=== PATIENT | female | born 1990 | race Caucasian/White ===

== ENCOUNTER 2021-10-13 18:36 | Inpatient (IN) | payer SELFPAY ==
[~2021-10-13] VITALS: Ht 170.2 cm; Wt 117.9 kg
[2021-10-13 19:19] VITALS: BP_SYST 140
--- NOTE | 2021-10-13 19:40 | NUR ---
DR. HESS TO ASSESS PATIENT IN TRIAGE
[2021-10-13 20:14] LABS: BASOPHILS % (AUTO) 0.2 % (0.0-2.0); EOSINOPHILS % (AUTO) 0.2 % (0.0-4.0); HEMATOCRIT 39.9 % (36-48); HEMOGLOBIN 13.4 g/dL (12.0-16.0); LYMPHOCYTES # (AUTO) 1.3 K/uL (1.0-5.5); LYMPHOCYTES % (AUTO) 8.7 % (20.5-51.5); MEAN CORPUSCULAR HEMOGLOBIN 30 pg (27-31); MEAN CORPUSCULAR HGB CONC 34 % (32-36); MEAN CORPUSCULAR VOLUME 88 fL (79.0-98.0); MONOCYTES # (AUTO) 0.8 K/uL (0.0-1.0); MONOCYTES % (AUTO) 5.5 % (1.7-9.3); NEUTROPHILS # (AUTO) 12.2 K/uL (1.8-7.7); NEUTROPHILS % (AUTO) 85.4 % (40.0-70.0); PLATELET COUNT (AUTO) 382 K/uL (130-430); RED BLOOD CELL COUNT(AUTO) 4.51 MIL/uL (4.2-6.2); RED CELL DISTRIBUTION WIDTH 14.1 % (9.0-15.0); WHITE BLOOD COUNT (AUTO) 14.4 K/uL (4.8-10.8)
[2021-10-13 20:29] LABS: CALCIUM 8.9 mg/dL (8.4-11.0); CREATININE 0.98 mg/dL (0.55-1.30); POTASSIUM 3.7 mmol/L (3.5-5.1)
[2021-10-13 20:35] LABS: ALBUMIN 4.2 g/dL (3.4-4.8); TOTAL BILIRUBIN 0.4 mg/dL (0.0-1.0)
--- NOTE | 2021-10-13 21:14 | NUR ---
COVID-19 BRI SWAB OBTAINED AND SENT TO THE LAB.
[2021-10-13 21:53] LABS: LACTATE DEHYDROGENASE 224 U/L (81-234)
--- NOTE | 2021-10-13 21:54 | NUR ---
Patient to ER bed 07 to gown for evaluation. Side rails up. Report given to KAPIL PAYNE
--- NOTE | 2021-10-13 22:00 | NUR ---
Pt brought self in from home due to episode of bilateral upper extremity numbness. Onset was around 1600 and continued until around 2100. Pt reports she had N&V 2 weeks prior, but no other symptoms. Denies N&V at this time. Arrived to ED in stable condition. Breathing adequately on RA. Denies any PMH.
--- NOTE | 2021-10-13 23:09 | NUR ---
Admit bed requested Patient will be admitted to care of . Admitted to MED SURG unit. Diagnosis TIA Inpatient (Yes or No) YES Orientation concerns or request close to nursing station (Yes or No) NO Covid Status - From Home (Yes or if No enter name of facility) YES
[2021-10-13] MEDS ORDERED: NACL 0.9% 1,000 ML IV SCH (23:15)
[2021-10-14] MEDS ORDERED: FAMOTIDINE 20 MG TABLET PO ONE (02:15)
--- NOTE | 2021-10-14 03:23 | NUR ---
Patient will be admitted to care of MD Kline. Admitted to Med Surg unit. Will go to room . Belongings list completed. Complete and up to date summary report printed. SBAR report given KAPIL [place] bedside with opportunity for questions.
[2021-10-14 03:25] VITALS: BP_SYST 120
--- NOTE | 2021-10-14 04:16 | NUR ---
THIS IS AN ADMISSION NOTE FOR A 31 YEAR OLD FEMALE UNDER THE CARE OF DOCTOR MONATNO FOR TRANSIENT ISCHEMIC ATTACK. TAURUS BARRIOS RN
[2021-10-14 06:49] VITALS: BP_SYST 116
--- NOTE | 2021-10-14 06:55 | NUR ---
PATIENT SAYS SHE WOULD LIKE TO DISCHARGE TO HOME WHEN HER DAD COMES TO VISIT TODAY. NOTIFIED MAY HAVE TO AWAIT NEUROLOGY APPROVAL FOR DISCHARGE. PATIENT MAINTAINS SHE WANTS TO DISCHARGE SOONER THAN 5PM. TAURUS BARRIOS RN
--- NOTE | 2021-10-14 07:19 | NUR ---
OPENING NOTE: REPORT RCVD FROM OUTGOING NOC RN, ALL CARES ASSUMED. (KAPIL WAGNER)
--- NOTE | 2021-10-14 07:35 | NUR ---
DR. BELLE MAKING ROUNDS, BEDSIDE REPORT GIVEN, NO NEW ORDERS AT THIS TIME.
[2021-10-14] MEDS ORDERED: ONDANSETRON 4 MG ODT TAB PO PRN (07:45)
--- NOTE | 2021-10-14 07:51 | NUR ---
CONSULT: JESSIE BELLE IS AWARE OF CONSULT, HAS ALREADY SEEN THE PATIENT
[2021-10-14 08:00] VITALS: BP_SYST 124
--- NOTE | 2021-10-14 08:15 | NUR ---
DUSTY OCAMPO AT BEDSIDE , VERBAL REPORT GIVEN.
--- NOTE | 2021-10-14 08:20 | NUR ---
UA COLLECTED AND BROUGHT TO LAB
[2021-10-14 08:21] VITALS: BP_SYST 122
[2021-10-14] MEDS ORDERED: ONDA-8 TL (08:22)
[2021-10-14 09:15] LABS: HCG,QUAL RESULT NEGATIVE (NEGATIVE)
== END 2021-10-14 08:40 | disposition home or self-care (01) | DRG 74 ==
LOC: SED 18:36 → SMU 23:06
PROVIDERS: ADMIT General Practice; ATTEND General Practice
DX: G90.8 Other disorders of autonomic nervous system (principal); Z68.41 Body mass index [BMI] 40.0-44.9, adult; E66.9 Obesity, unspecified; E86.0 Dehydration; Z20.822 Contact with and (suspected) exposure to COVID-19
CPT/HCPCS: 36415; 70450-TC; 72125-TC; 76376; 80053; 82550; 83615; 83735; 84703; 85025; 85651-TC; 99285; Q0162

== ENCOUNTER 2021-11-07 18:24 | Emergency (ER) | payer BC ==
[~2021-11-07] VITALS: Ht 170.2 cm; Wt 116.1 kg
[~2021-11-07 18:24] MED LIST: ONDA-8 TL
[2021-11-07 18:49] VITALS: BP_SYST 150
[2021-11-07 21:56] LABS: BLOOD, URINE 3+ (NEGATIVE); GLUCOSE,URINE NEGATIVE (NEGATIVE); KETONES,URINE 1+ (NEGATIVE); LEUKOCYTE ESTERASE ,URINE TRACE (NEGATIVE); NITRITE, URINE NEGATIVE (NEGATIVE); PH,URINE 5.5 (5.0-8.0); PROTEIN URINE 2+ (NEGATIVE)
[2021-11-07 21:56] LABS: BASOPHILS % (AUTO) 0.4 % (0.0-2.0); EOSINOPHILS % (AUTO) 0.2 % (0.0-4.0); HEMATOCRIT 40.3 % (36-48); HEMOGLOBIN 13.9 g/dL (12.0-16.0); LYMPHOCYTES # (AUTO) 1.3 K/uL (1.0-5.5); LYMPHOCYTES % (AUTO) 12.8 % (20.5-51.5); MEAN CORPUSCULAR HEMOGLOBIN 31 pg (27-31); MEAN CORPUSCULAR HGB CONC 35 % (32-36); MEAN CORPUSCULAR VOLUME 89 fL (79.0-98.0); MONOCYTES # (AUTO) 0.5 K/uL (0.0-1.0); MONOCYTES % (AUTO) 5.2 % (1.7-9.3); NEUTROPHILS # (AUTO) 8.5 K/uL (1.8-7.7); NEUTROPHILS % (AUTO) 81.4 % (40.0-70.0); PLATELET COUNT (AUTO) 358 K/uL (130-430); RED BLOOD CELL COUNT(AUTO) 4.51 MIL/uL (4.2-6.2); RED CELL DISTRIBUTION WIDTH 14.9 % (9.0-15.0); WHITE BLOOD COUNT (AUTO) 10.4 K/uL (4.8-10.8)
[2021-11-07 21:58] LABS: CALCIUM 8.9 mg/dL (8.4-11.0); CREATININE 1.07 mg/dL (0.55-1.30); POTASSIUM 4.1 mmol/L (3.5-5.1)
[2021-11-07 22:02] LABS: BILIRUBIN,URINE 2+ (NEGATIVE); CLARITY/URINE HAZY (CLEAR); COLOR,URINE AMBER (YELLOW)
[2021-11-07 22:03] LABS: TOTAL BILIRUBIN 0.4 mg/dL (0.0-1.0)
[2021-11-07 22:06] LABS: BACTERIA,URINE FEW /HPF (None Seen); MUCUS,URINE None Seen /LPF (None Seen); RBC,URINE 20-50 /HPF (0-3)
--- NOTE | 2021-11-08 00:05 | NUR ---
Patient to ER bed 05 to gown for evaluation. Side rails up. Report given to KAPIL WHEELER
[2021-11-08] MEDS ORDERED: ONDANSETRON HCL 4 MG/2 ML VIAL IVP ONE (01:00)
[2021-11-08] MEDS ORDERED: NACL 0.9% 1,000 ML IV ONE (01:00)
[2021-11-08] MEDS ORDERED: DIPHENHYDRAMINE INJ 50 MG/ML VIAL IVP ONE (03:00)
[2021-11-08] MEDS ORDERED: METOCLOPRAMIDE HCL 10 MG/2 ML VIAL IVP ONE (03:00)
[2021-11-08] MEDS ORDERED: ONDA-8 TL (04:06)
--- NOTE | 2021-11-08 04:20 | NUR ---
DC INSTRUCTIONS GIVEN TO PT WITH FULL RETURNED VERBAL UNDERSTANDING. NO S/S OF DISTRESS NOTED. PT WAS ABLE TO KEEP LIQUIDS DOWN PRIOR TO DISCHARGE. VSS PT AMBULATES TO EXIT WITH STEADY GAIT. IV DC'D, CATHETER INTACT. SMALL PRESSURE DRESSING APPLIED.
[2021-11-08 04:30] VITALS: BP_SYST 124
== END 2021-11-08 04:30 | disposition home or self-care (01) ==
LOC: SED 18:24
DX: R11.2 Nausea with vomiting, unspecified (principal); R10.13 Epigastric pain; Z79.899 Other long term (current) drug therapy
CPT/HCPCS: 36415; 76700; 80053; 81000; 81025; 83690; 85025; 96361; 96374; 96375; 99284; J1200; J2405; J2765; J7030